=== PATIENT | male | born 1990 | race Caucasian/White ===

== ENCOUNTER 2021-09-01 21:48 | Emergency (ER) | payer OTHER ==
[2021-09-01] MEDS ORDERED: NARCAN4 MG (23:52)
== END 2021-09-02 00:19 | disposition home or self-care (01) ==
LOC: FER 21:48
DX: T40.1X1A Poisoning by heroin, accidental (unintentional), initial encounter (principal); F17.210 Nicotine dependence, cigarettes, uncomplicated
CPT/HCPCS: 99284